=== PATIENT | male | born 1975 | race Caucasian/White ===

== ENCOUNTER 2020-09-24 19:34 | Emergency (ER) | payer BC, SELFPAY ==
[2020-09-24 19:51] VITALS: BP 144/83; PULSE 102; RESP 18; TEMP 36.8; O2SAT 98; BMI 47.7
--- NOTE | 2020-09-24 20:12 | XRR_ITS ---
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 Lac to left knee. Swelling; Additional info: Fall with pain to left knee TECHNIQUE: Imaging protocol: XR Left knee. Views: 3 views. COMPARISON: No relevant prior studies available. FINDINGS: Bones/joints: No acute fracture, subluxation, periosteal reaction or osseous erosion. The joint space is preserved. Soft tissues: Normal. XR/XR knee LT 3V* [id number] IMPRESSION: No acute fracture, subluxation, periosteal reaction or osseous erosion.
--- NOTE | 2020-09-24 20:30 | ED_ITS ---
HPI - Extremity Problem General: Chief complaint: Extremity Injury, Lower Stated complaint: knee injury Time Seen by Provider: 09/24/20 20:03 History of Present Illness: HPI Narrative: Patient is a 45-year-old male comes to the ED with a left knee injury. Patient says he was working out [place] and had a just recently ran some of the ground was selected. He said a cow made a movement causing him to slip and his left knee went down to the ground. Patient says the ground was full of common ER. Patient says he felt all pop in his left knee. He also has a laceration to his left knee. Associated symptoms: Deny chest pain, fever(s) or rash Review of Systems Const: Denies: fever(s), chills or fatigue Eyes: Denies: change in vision or eye discomfort ENMT: Denies: throat pain, odynophagia, nasal discharge or nasal congestion Card: Denies: chest pain, palpitations, edema, swelling of feet/ankles, dyspnea on exertion or orthopnea Resp: Denies: dyspnea, productive cough or non-productive cough GI: Denies: abdominal pain, nausea, vomiting, diarrhea, constipation or hematochezia : Denies: flank pain, difficulty urinating, dysuria or hematuria Musc: Reports: extremity pain (Pain in left knee.); Denies: neck pain, back pain or extremity swelling Skin/Breast: Reports: new lesions (Laceration left knee); Denies: rash Neuro: Denies: headache(s), numbness in extremities or weakness in extremities Physical Exam Const: COMMON NORMALS: no acute distress, patient oriented x3 and alert GENERAL APPEARANCE: cooperative and comfortable HENMT: COMMON NORMALS: normocephalic HEAD & SCALP: normocephalic MOUTH: Normal oral and palatal mucosa present THROAT: posterior oropharynx normal and uvula midline Neck/C-Spine: COMMON NORMALS: supple GENERAL: Yes normal visual inspection Resp: COMMON NORMALS: normal respiratory effort, No retractions, No use of accessory muscles and clear to auscultation bilaterally AUSCULTATION: clear to auscultation bilaterally Cardio: COMMON NORMALS: regular rate, regular rhythm, S1 normal heart sound present, S2 normal heart sound present, No gallops present (Cardio), No clicks present (Cardio), No murmurs present (Cardio) and Peripheral pulses 2+ throughout RATE: regular rate RHYTHM: regular rhythm HEART SOUNDS: S1 normal heart sound present and S2 normal heart sound present PERIPHERAL PULSES: Peripheral pulses 2+ throughout GI: COMMON NORMALS: Normal to inspection, nondistended, normoactive bowel sounds present, Soft to palpation, non-tender and no masses PALPATION: Yes Soft to palpation : COMMON NORMALS: Yes no CVA tenderness BLADDER/KIDNEY EXAM: Yes no CVA tenderness Back/Pelvis: COMMON NORMALS: no CVA tenderness Extremity: LEFT LOWER EXTREMITY: Yes knee joint Left knee: Yes inspection (Some mild swelling but no visible deformity.), Yes palpation (Tender on anterior aspect), Yes ROM (Limited due to pain) and Yes neurovascular exam (Intact) Neuro: COMMON NORMALS: patient oriented x3 and moves all extremities SENSORIUM/ORIENTATION: Yes alert Skin: NARRATIVE SKIN EXAM: Patient has superficial laceration on left knee that is approximately 1 cm in length. Wound margins are already closed and sutures would not be needed. GENERAL SKIN EXAM: dry skin Course Vital Signs: Vital signs: Vital Signs Temperature 98.2 F 09/24/20 19:51 Pulse Rate 88 09/24/20 22:07 Respiratory Rate 18 09/24/20 22:07 Blood Pressure 115/76 09/24/20 22:07 Pulse Oximetry 97 09/24/20 22:07 MDM - Extremity (Nontraumatic) MDM Narrative: Medical decision making narrative: Patient's left knee laceration was irrigated and cleaned extensively by nurse tech. Left knee x-ray showed no acute fractures or findings. Triple antibiotic ointment was applied on laceration and then bandaged up. Patient was given updated tetanus while here in the ED and also discharged home with some crutches. Patient diagnosed with left knee contusion and laceration on left knee. Patient was discharged home on Keflex as prophylactic treatment due to laceration. Return to ED precautions given. Follow-up with PCP in 7 to 10 days for reevaluation. Patient understood agree with plan. Imaging Data^: Xray Ortho: Attestation: I personally reviewed and interpreted this imaging study as follows: Radiologist's impression: [address] [id number] ReportSigned Patient: Jovon Collins #: [id number]: 1975Acct#:[id number]/Sex: 45 / MADM Date: 09/24/20Loc: ERRoom/Bed:Attending Dr: Ordering Provider/Ordering MD: John Bonds Date of Service: 09/24/20 Procedure(s): XR knee LT 3V* [id number] Accession Number(s): [id number] Report Number: [id number] PROCEDURE INFORMATION: Exam: XR Left Knee Exam date and time: 09/24/2020 8:12 PM Age: 45 years old Clinical indication: Injury or trauma; Fall; Blunt trauma; 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 Lac to left knee. Swelling; Additional info: Fall with pain to left knee TECHNIQUE: Imaging protocol: XR Left knee. Views: 3 views. COMPARISON: No relevant prior studies available. FINDINGS: Bones/joints: No acute fracture, subluxation, periosteal reaction or osseous erosion. The joint space is preserved. Soft tissues: Normal. XR/XR knee LT 3V* [id number] IMPRESSION: No acute fracture, subluxation, periosteal reaction or osseous erosion. Dictated By:Lopez Mckeon MDSigned By:Lopez Mckeon MDSigned Date/Time:09/24/20/ 02 Discharge Plan Discharge Patient Disposition: Home Clinical Impression: Contusion of knee, left Qualifiers: Encounter type: initial encounter Qualified Code(s): S80.02XA - Contusion of left knee, initial encounter Laceration of knee, left Qualifiers: Encounter type: initial encounter Qualified Code(s): S81.012A - Laceration without foreign body, left knee, initial encounter Condition: Stable Prescriptions: New cephalexin 500 mg capsule 500 mg PO Q6H 7 Days Qty: 28 RF: 0 Neosporin ([id number]) 3.5mg-400 unit- 5,000 unit/gram ointment 1 applic topical DAILY Qty: 14.2 RF: 0 Discharge Orders: Discharge ED (Routine); Ordered 09/24/20 Ordered By: John Bonds Referrals: Matilda Marti DO [Primary Care Provider] - Discharge Diet: Regular Discharge Activity: Increase activity as tolerated and Use walker/crutches as instructed Patient Instructions: Laceration (ED), Contusion in Adults (ED), Knee Pain (ED) Activity Restrictions/Additional Instructions: Follow-up with medical provider as directed. Use crutches and limit weightbearing for the next 48 hours. After 48 hours increase activity and weightbearing as tolerated. Rest, ice and elevate left leg. Take [id number] ibuprofen or Tylenol for pain. Clean laceration on knee daily and apply Neosporin and bandage to keep it covered. Take medications as prescribed. Return to the ER or your medical provider if condition worsens. Please read and understand discharge instructions. Thank you for choosing [facility] for your healthcare needs today. Please realize this is an emergency room and that we are providing you with a medical screening exam and this may not be complete and all inclusive of all the testing and or work up that you may need to determine your ailment or severity of your illness. It is very important that you follow up as instructed or that you return to the Emergency Department should you have concerns or if your condition changes or worsens in any way. Coding Level of Care Code ED Extrusion Press Operator for Ebonie Malcolm Exam Comprehensive
[2020-09-24] MEDS: HYDROcodone-acetaminophen 7.5-325 mg Tablet 1 TAB PO (20:49)
[2020-09-24] MEDS: tetanus-dipt-pertussis 0.5 mL SDV IM (20:50)
[2020-09-24] MEDS: neomycin-poly-bacitracin oint 0.9 gm Pkt 1 APPLIC TOPICAL (21:52)
[2020-09-24 22:07] VITALS: BP 115/76; PULSE 88; RESP 18; O2SAT 97
== END 2020-09-24 22:09 | disposition home or self-care (01) ==
PROVIDERS: Emergency Provider Physician Assistant; PCP Family Medicine
DX: S80.02XA Contusion of left knee, initial encounter (principal); S81.012A Laceration without foreign body, left knee, initial encounter; W01.0XXA Fall on same level from slipping, tripping and stumbling without subsequent striking against object, initial encounter; Z23 Encounter for immunization
CPT/HCPCS: 73562; 90471; 90715; 99283; E0114

== ENCOUNTER → 2020-12-21 08:34 | Outpatient (BNVA) | payer BC, SELFPAY | PROVIDERS: PCP Family Medicine; Visit Provider Urology | DX: R31.0 Gross hematuria (principal); R10.9 Unspecified abdominal pain; Z87.440 Personal history of urinary (tract) infections; R39.13 Splitting of urinary stream | CPT/HCPCS: 81003; 87086; 88112 ==

== ENCOUNTER 2021-01-03 09:07 | Outpatient (CLI) | payer BC, SELFPAY ==
--- NOTE | 2021-01-03 09:00 | CT_ITS ---
WS: [id number] CT ABDOMEN PELVIS TECHNIQUE: Noncontrast CT of the abdomen and contrast-enhanced CT of the abdomen and pelvis with herbert nal and sagittal reformatted images. CLINICAL INFORMATION: GROSS HEMATURIA COMPARISON: None. DLP: 5270.[address] scans at [facility] use at least one of these dose optimization techniques: automated e xposure control; mA and/or kV adjustment per patient size (includes targeted exams where dose is matc hed to clinical indication); or iterative reconstruction. FINDINGS: Mild diffuse fatty infiltration of the liver. Normal portal vein and splenic vein. Prior cholecystect tramaine. Normal spleen. Small esophageal hiatal hernia. Adrenal glands are normal. Normal renal parenchymal enhancement. No hydronephrosis. Normal excretion on the delayed images. Normal filling of both ureters. Normal bladder filling. Mild fatty atrophy of the pancreas. Normal sigmoid colon. No evidence of small or large bowel obstruc tion. Normal caliber abdominal aorta. No abdominal or retroperitoneal lymphadenopathy. No pelvic or i nguinal lymphadenopathy. Tiny fat-containing umbilical hernia. No obstructing renal or ureteral calculi on the noncontrast imaging. CT/CT abdomen pelvis wo/w [id number] IMPRESSION: 1. No obstructing renal or ureteral calculi. No hydronephrosis. 2. Normal renal parenchymal enhancement. Normal excretion on delayed images. N o filling defects in the ureter. 3. Normal-appearing bladder. 4. No adenopathy in the abdomen or pelvis. 5. Mild diffuse fatty infiltration of the liver. 6. Prior cholecystectomy. 7. Small esophageal hiatal hernia.
[2021-01-03] MEDS: iohexol 300 mg/mL 100 mL Btl IV (09:32)
== END 2021-01-03 09:08 | disposition home or self-care (01) ==
LOC: CT 09:09
PROVIDERS: PCP Family Medicine; Visit Provider Urology
DX: R31.0 Gross hematuria (principal); R10.9 Unspecified abdominal pain; K44.9 Diaphragmatic hernia without obstruction or gangrene; Z90.49 Acquired absence of other specified parts of digestive tract; K76.0 Fatty (change of) liver, not elsewhere classified; R31.29 Other microscopic hematuria
CPT/HCPCS: 74178; 81003